=== PATIENT | female | born 1945 | race Caucasian/White ===

== ENCOUNTER 2017-10-26 19:58 | Emergency (ER) | payer MEDICARE, OTHER, BC ==
[2017-10-26] MEDS ORDERED: NS 0.9% 1000 ML* 1,000 ML IV ONE (20:20)
[2017-10-26 20:43] LABS: ABS Basophils 0.1 10^3/ul (0-0.2); ABS Eosinophils 0.7 10^3/ul (0-0.6); ABS Lymphocytes 1.5 10^3/ul (1.0-4.8); ABS Monocytes 0.5 10^3/ul (0-0.8); ABS Neutrophils 4.3 10^3/ul (1.5-7.7); ABS Nucleated RBC 0 10^3/ul; Eosinophil % 9.4 % (0-6); Hematocrit 37 % (35-47); Hemoglobin 12.8 g/dl (12.0-16.0); Lymphocyte % 21.5 % (25-47); Mean Corpuscular HGB Conc 34 g/dl (31-36); Mean Corpuscular Hemoglobin 31 pg (27-31); Mean Corpuscular Volume 90 fL (80-97); Nucleated Red Blood Cells % 0; Platelet Count 248 10^3/ul (150-450); Red Blood Count 4.18 10^6/ul (4.00-5.40); Red Cell Distribution Width 13 % (10.5-15)
[2017-10-26 20:52] LABS: INR 0.94 (0.77-1.02)
[2017-10-26 21:01] LABS: EGFR Non-African American 61.9 (>60)
--- NOTE | 2017-10-26 21:09 | ED ---
Shortness of Breath - HPI Summary HPI Summary: This is scribe Walter Rivas documenting for attending Dr. Sara Stein MD. A 72 y/o female presents to ED c/o SOB. Additionally c/o generalized weakness and low-grade fever reaching 5/10 in severity. As per triage, "Pt in with c/o pain behind eyes, weakness, not eating well, fatigue, vertgio. Pt states onset 3 weeks ago. Pt states she had tests 1 wk ago and hasn't heard from PCP". According to the patient, she should not get enough breathe today. She stated that she has been feeling terrible the past week, however, today has been worse. Additional symptoms include tongue burning, low-grade fever around 99 F, eye pain (back), mucous "dripping down" and her feet are freezing or burning ( "like i am stepping on hot stuff"). Furthermore the patient has no energy. Pt denies any urination issues, however, she is constipated. She took extra strength Tylenol approximately 3 hours ago. PMHx of vertigo, resolved DM. - History of Current Complaint Chief Complaint: EDGeneral Time Seen by Provider: 10/26/17 20:13 Hx Obtained From: Patient Onset/Duration: Lasting Weeks, Still Present, Worse Since Timing: Constant Current Severity: Moderate - 5/10 as per triage. Dyspnea At: Rest Aggrevating Factors: Nothing Alleviating Factors: Nothing Associated Signs & Symptoms: Fever - Low-grade - Allergy/Home Medications Allergies/Adverse Reactions: Allergies Allergy/AdvReac Type Severity Reaction Status Date / Time MS Latex [Latex] Allergy Unknown Verified 10/14/15 18:00 Reaction Details MS Penicillins [PCN] Allergy Unknown Verified 10/14/15 18:00 Reaction Details MS Sulfa Antibiotics Allergy Unknown Verified 10/14/15 18:00 [Sulfa Antibiotics] Reaction Details PMH/Surg Hx/FS Hx/Imm Hx Endocrine/Hematology History: Reports: Hx Diabetes - diet controlled, Hx Thyroid Disease Cardiovascular History: Reports: Hx Hypotension, Other Cardiovascular Problems/ Disorders Respiratory History: Reports: Hx Asthma GI History: Reports: Hx Irritable Bowel Sensory History: Reports: Hx Contacts or Glasses Opthamlomology History: Reports: Hx Contacts or Glasses Neurological History: Reports: Other Neuro Impairments/Disorders - [place], Polio as a child Psychiatric History: Reports: Hx Anxiety, Hx Depression - Cancer History Cancer Type, Location and Year: breast cancer dx by MD; Pt. 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 Denies: Traveled Outside the [place] in Last 30 Days - Family History Known Family History: Positive: Cardiac Disease, Hypertension, Diabetes, Other - Dystonia - Social History Alcohol Use: None Substance Use Type: Reports: None Smoking Status (MU): Former Smoker Review of Systems Positive: Fever - Low-grade 99 F, Fatigue - Generalized (no energy), Other - POSITIVE: Generalized sickness Positive: Other - POSITIVE: Eye pain Positive: Other - POSITIVE: Tongue burning, dripping mucous Positive: Shortness Of Breath Positive: Other - POSITIVE: Feet are burning or freezing Positive: Weakness - Generalized (no energy) All Other Systems Reviewed And Are Negative: Yes Physical Exam - Summary Physical Exam Summary: VITAL SIGNS: Reviewed. GENERAL: Patient is a well-developed and nourished female who is lying comfortable in the stretcher. Patient is not in any acute respiratory distress. Normal exam. HEAD AND FACE: No signs of trauma. No ecchymosis, hematomas or skull depressions. No sinus tenderness. EYES: PERRLA, EOMI x 2, No injected conjunctiva, no nystagmus. EARS: Hearing grossly intact. Ear canals and tympanic membranes are within normal limits. MOUTH: Oropharynx within normal limits. NECK: Supple, trachea is midline, no adenopathy, no JVD, no carotid bruit, no c- spine tenderness, neck with full ROM. CHEST: Symmetric, no tenderness at palpation LUNGS: Clear to auscultation bilaterally. No wheezing or crackles. CVS: Regular rate and rhythm, S1 and S2 present, no murmurs or gallops appreciated. ABDOMEN: Soft, non-tender. No signs of distention. No rebound no guarding, and no masses palpated. Bowel sounds are normal. EXTREMITIES: FROM in all major joints, no edema, no cyanosis or clubbing. NEURO: Alert and oriented x 3. No acute neurological deficits. Speech is normal and follows commands. SKIN: Dry and warm Triage Information Reviewed: Yes Vital Signs On Initial Exam: Initial Vitals Temp Pulse Resp BP Pulse Ox 98.9 F 67 16 147/85 99 10/26/17 20:01 10/26/17 20:01 10/26/17 20:01 10/26/17 20:01 10/26/17 20:01 Vital Signs Reviewed: Yes Diagnostics - Vital Signs Vital Signs Temp Pulse Resp BP Pulse Ox 10/26/17 20:01 98.9 F 67 16 147/85 99 - Laboratory Lab Results: Lab Results 10/26/17 10/26/17 10/26/17 Range/Units 20:29 20:29 20:29 WBC 7.0 (3.5-10.8) 10^3/ul RBC 4.18 (4.00-5.40) 10^6/ul Hgb 12.8 (12.0-16.0) g/dl Hct 37 (35-47) % MCV 90 (80-97) fL MCH 31 (27-31) pg MCHC 34 (31-36) g/dl RDW 13 (10.5-15) % Plt Count 248 (150-450) 10^3/ul MPV 9.0 (7.4-10.4) um3 Neut % (Auto) 61.2 (38-83) % Lymph % (Auto) 21.5 L (25-47) % Coke % (Auto) 7.0 (0-7) % Eos % (Auto) 9.4 H (0-6) % Baso % (Auto) 0.9 (0-2) % Absolute Neuts (auto) 4.3 (1.5-7.7) 10^3/ul Absolute Lymphs (auto) 1.5 (1.0-4.8) 10^3/ul Absolute Monos (auto) 0.5 (0-0.8) 10^3/ul Absolute Eos (auto) 0.7 H (0-0.6) 10^3/ul Absolute Basos (auto) 0.1 (0-0.2) 10^3/ul Absolute Nucleated RBC 0 10^3/ul Nucleated RBC % 0 INR (Anticoag Therapy) 0.94 (0.77-1.02) APTT 29.8 (26.0-36.3) seconds Lactic Acid 0.7 (0.5-2.0) mmol/L Result Diagrams: 10/26/17 20:29 10/26/17 20:29 Lab Statement: Any lab studies that have been ordered have been reviewed, and results considered in the medical decision making process. - Radiology CXR Radiology Interpretation Completed By: ED Physician - NO ACUTE PROCESS. PENDING OFFICIAL REPORT. Re-Evaluation - Re-Evaluation First Eval Re-Evaluation Time: 21:59 Comment: Discussed results with patient. 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 For the last 30 years she has been treated in [facility]. Patient thinks she is having a relapse, however, blood work is essentially normal. Patient will be discharged home with a diagnosis of viral syndrom and chronic fatigue syndrome. Patient will go back to physician in [facility] who treated her for chronic fatigue syndrome. - Diagnoses Provider Diagnoses: Viral syndrome, Chronic fatigue syndrome Discharge - Sign-Out/Discharge Documenting (check all that apply): Patient Departure - DISCHARGE - Discharge Plan Condition: Stable Disposition: HOME Patient Education Materials: Chronic Fatigue Syndrome (ED), Viral Syndrome (ED) Referrals: Non Staff,Doctor [Primary Care Provider] - [facility] [Outside] Additional Instructions: FOLLOW UP WITH PRIMARY CARE PHYSICIAN IN 1 WEEK. RETURN TO ED FOR ANY NEW OR WORSENING SYMPTOMS.
[2017-10-26 21:44] LABS: Urine Appearance Cloudy; Urine Blood Negative (Negative); Urine Color Yellow; Urine Ketones Negative (Negative); Urine Protein Negative (Negative); Urine Specific Gravity 1.004 (1.010-1.030); Urine Urobilinogen Negative (Negative)
[2017-10-26 23:15] VITALS: BP 176/88
--- NOTE | 2017-10-27 07:05 | RAD ---
INDICATION: Weakness COMPARISON: Similar chest x-ray October 14, 2015 TECHNIQUE: Single AP portable view of the chest was obtained. FINDINGS: Image quality is compromised due to the relative inferiority of a portable chest x-ray. The heart and mediastinum exhibit normal size and contour. The lungs are grossly clear. There is no evidence of a large pleural effusion. Visualized bones are normal for the patient's age. IMPRESSION: No radiographic evidence for acute cardiopulmonary abnormality on this portable chest x-ray.
== END 2017-10-26 23:20 | disposition home or self-care (01) ==
LOC: ED 19:58
DX: B34.9 Viral infection, unspecified (principal); G89.4 Chronic pain syndrome; E11.9 Type 2 diabetes mellitus without complications; Z87.891 Personal history of nicotine dependence; Z88.0 Allergy status to penicillin; Z88.2 Allergy status to sulfonamides
CPT/HCPCS: 36415; 71045; 80053; 81003; 83605; 84443; 84484; 85025; 85610; 85730; 86140; 87040; 87651; 96360; 99282

== ENCOUNTER 2017-12-10 21:07 | Emergency (ER) | payer MEDICARE, BC ==
--- NOTE | 2017-12-10 21:40 | ED ---
Upper Extremity Pain - HPI Summary HPI Summary: This patient is a 72 year old F presenting to [facility] with a chief complaint of bruising to her left wrist since 2 days ago. The patient denies any injury. The patient reports that when her symptoms began her left wrist was erythematous, hot, and swollen. The patient reports that the bruise seems to have spread down her wrist toward her forearm since her symptoms began. The patient rates the pain 0/10 in severity. Symptoms aggravated by nothing. Symptoms alleviated by nothing. Patient denies any pain. - History of Current Complaint Chief Complaint: EDExtremityUpper Stated Complaint: LT WRIST PROBLEM Time Seen by Provider: 12/10/17 21:28 Hx Obtained From: Patient Mechanism Of Injury: Unknown Onset/Duration: Started Days Ago - 2 days, Atraumatic Timing: Lasting Days - 2 days Severity Initially: Mild Severity Currently: Mild Pain Location: Forearm - left, Wrist - left Aggravating Factor(s): Nothing Alleviating Factor(s): Nothing Associated Signs & Symptoms: Positive: Swelling, Redness, Bruising - Allergies/Home Medications Allergies/Adverse Reactions: Allergies Allergy/AdvReac Type Severity Reaction Status Date / Time MS Latex [Latex] Allergy Unknown Verified 12/10/17 21:13 Reaction Details MS Penicillins [PCN] Allergy Unknown Verified 12/10/17 21:13 Reaction Details MS Sulfa Antibiotics Allergy Unknown Verified 12/10/17 21:13 [Sulfa Antibiotics] Reaction Details PMH/Surg Hx/FS Hx/Imm Hx Endocrine/Hematology History: Reports: Hx Diabetes - diet controlled, Hx Thyroid Disease Cardiovascular History: Reports: Hx Hypotension, Other Cardiovascular Problems/ Disorders Respiratory History: Reports: Hx Asthma GI History: Reports: Hx Irritable Bowel Sensory History: Reports: Hx Contacts or Glasses Opthamlomology History: Reports: Hx Contacts or Glasses Neurological History: Reports: Other Neuro Impairments/Disorders - [place], Polio as a child Psychiatric History: Reports: Hx Anxiety, Hx Depression - Cancer History Cancer Type, Location and Year: breast cancer dx by MD; Pt. 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 Denies: Traveled Outside the [place] in Last 30 Days - Family History Known Family History: Positive: Cardiac Disease, Hypertension, Diabetes, Other - Dystonia - Social History Alcohol Use: None Substance Use Type: Reports: None Smoking Status (MU): Former Smoker Review of Systems Negative: Fever Negative: Epistaxis Negative: Cough Negative: Vomiting Positive: Bruising All Other Systems Reviewed And Are Negative: Yes Physical Exam - Summary Physical Exam Summary: Appearance: Well-appearing, Well-nourished, lying in bed comfortably Skin: Warm, dry, no obvious rash, Ecchymosis starting at left volar ulnar wrist extending a few centimeters into the forearm. No swelling, no warmth, no tenderness. Eyes: sclera anicteric, no conjunctival pallor ENT: mucous membranes moist, pharynx appears normal Neck: Supple, nontender Respiratory: Clear to auscultation, no signs of respiratory distress Cardiovascular: Normal S1, S2. No murmurs. Normal distal pulses in tibial and radial bilaterally. Abdomen: Soft, nontender, normal active bowel sounds present Musculoskeletal: Normal, Strength/ROM Intact. Tenderness of dorsal mid-hand. No deformity, no swelling. Tenderness is right radial forearm. Neurological: A&Ox3, awake and alert, mentation is normal, speech is fluent and appropriate Psychiatric: affect is normal, does not appear anxious or depressed Triage Information Reviewed: Yes Vital Signs On Initial Exam: Initial Vitals Temp Pulse Resp BP Pulse Ox 98.3 F 67 16 133/80 98 12/10/17 21:10 12/10/17 21:10 12/10/17 21:10 12/10/17 21:10 12/10/17 21:10 Vital Signs Reviewed: Yes Diagnostics - Vital Signs Vital Signs Temp Pulse Resp BP Pulse Ox 12/10/17 21:10 98.3 F 67 16 133/80 98 - Laboratory Lab Statement: Any lab studies that have been ordered have been reviewed, and results considered in the medical decision making process. - Radiology Left Wrist XR Xray Interpretation: No Acute Changes Radiology Interpretation Completed By: ED Physician - Dr. Poole, pending official report Course/Dx - Diagnoses Provider Diagnoses: Traumatic ecchymosis of left wrist Discharge - Sign-Out/Discharge Documenting (check all that apply): Patient Departure - Discharge Plan Condition: Stable Disposition: HOME Patient Education Materials: Ecchymosis (ED) Referrals: [facility] [Outside] Additional Instructions: I expect this to resolve on its own over the next 1-2 weeks. If it starts looking worse, or gets red and painful, we should see you back here. But I do not expect that to happen. - Billing Disposition and Condition Condition: STABLE Disposition: Home - Attestation Statements Document Initiated by Scribe: Yes Documenting Scribe: Justa Calix Provider For Whom Kevinibe is Documenting (Include Credential): Wallace Poole MD Scribe Attestation: I, Justa Calix, scribed for Wallace Poole MD on 12/10/17 at 2316. Scribe Documentation Reviewed: Yes Provider Attestation: The documentation as recorded by the kevinibJusta templeton accurately reflects the service I personally performed and the decisions made by me, Wallace Poole MD
[2017-12-10 21:55] VITALS: BP 134/77
--- NOTE | 2017-12-11 11:56 | RAD ---
INDICATION: Atraumatic left wrist bruising COMPARISON: None. TECHNIQUE: 3 views left wrist. REPORT: The visualized bones are properly aligned and well corticated. The joint spaces are normal.There is no fracture, dislocation or other focal osseous abnormality. IMPRESSION: Normal radiograph of the left wrist. If the patient's symptoms persist, follow-up imaging is recommended. R0
== END 2017-12-10 21:54 | disposition home or self-care (01) ==
LOC: ED 21:07